=== PATIENT | male | born 1995 | race Caucasian/White ===

== ENCOUNTER 2019-05-24 09:06 | Emergency (ER) | payer SELFPAY ==
[2019-05-24] MEDS ORDERED: AMOXICILLIN TR/POT CLAVULANATE 500-125 MG TAB PO ONE (09:44)
[2019-05-24] MEDS ORDERED: HYDROCODONE/ACETAMINOPHEN 5-325 MG TABLET PO ONE (09:46)
[2019-05-24] MEDS ORDERED: AMOXICILLIN TRIHYD 250 MG CAPSULE PO ONE (09:46)
--- NOTE | 2019-05-24 09:46 | ER Document Report ---
ED Medical Screen (RME) - General Chief Complaint: Dog Bite Stated Complaint: ARM INJURY Time Seen by Provider: 05/24/19 09:38 Notes: Patient is a 23-year-old male who presents the emergency department after a dog bite. The dog bite happened at around 1:00 this morning. He was trying to get his friend's dog out of the way and the dog and biting him. He then started to walk down some stairs and he fell down them scraping his right knee. He denies any actual pain in his right knee. He does have some pain in his right hand and wrist where the dog bit him. He states that the dog is a "mutt." The dog is up-to-date on their rabies vaccine. Patient is up-to-date on his tetanus vaccine. Exam: Multiple puncture wounds noted to right hand and wrist/distal forearm. I have greeted and performed a rapid initial assessment of this patient. A comprehensive ED assessment and evaluation of the patient, analysis of test results and completion of medical decision making process will be conducted by an additional ED providers. TRAVEL OUTSIDE OF THE [place] IN LAST 30 DAYS: No - Related Data Allergies/Adverse Reactions: No Known Allergies Allergy (Verified 05/24/19 09:08) Past Medical History Past Surgical History: Reports: Hx Orthopedic Surgery - left shoulder - Immunizations Hx Diphtheria, Pertussis, Tetanus Vaccination: Yes Physical Exam - Vital signs Vitals: Temp Pulse Resp BP Pulse Ox 98.7 F 96 18 113/85 100 05/24/19 09:12 05/24/19 09:12 05/24/19 09:12 05/24/19 09:12 05/24/19 09:12 Course - Vital Signs Vital signs: Temp Pulse Resp BP Pulse Ox 98.7 F 96 18 113/85 100 05/24/19 09:12 05/24/19 09:12 05/24/19 09:12 05/24/19 09:12 05/24/19 09:12
--- NOTE | 2019-05-24 10:15 | RADIOLOGY REPORT (SQ) ---
EXAM DESCRIPTION: HAND RIGHT 3 VIEWS; WRIST RIGHT 3 VIEWS COMPLETED DATE/TIME: 05/24/2019 9:59 am REASON FOR STUDY: dog bite COMPARISON: None. FINDINGS: Three views right wrist: No fracture. No carpal malalignment. Mild dorsal soft tissue s welling without radiopaque foreign body detected. Three views right hand: Normal. TECHNICAL DOCUMENTATION: JOB ID: [id number] Reading location - IP/workstation name: [email or web address]
--- NOTE | 2019-05-24 10:15 | RADIOLOGY REPORT (SQ) ---
EXAM DESCRIPTION: HAND RIGHT 3 VIEWS; WRIST RIGHT 3 VIEWS COMPLETED DATE/TIME: 05/24/2019 9:59 am REASON FOR STUDY: dog bite COMPARISON: None. FINDINGS: Three views right wrist: No fracture. No carpal malalignment. Mild dorsal soft tissue s welling without radiopaque foreign body detected. Three views right hand: Normal. TECHNICAL DOCUMENTATION: JOB ID: [id number] Reading location - IP/workstation name: [email or web address]
--- NOTE | 2019-05-24 10:29 | ER Document Report ---
ED Animal Bite - General Chief Complaint: Dog Bite Stated Complaint: ARM INJURY Time Seen by Provider: 05/24/19 09:38 Primary Care Provider: HOMERO ROSE MD [ACTIVE STAFF] - Follow up as needed MANNY CAMARA DO [ACTIVE STAFF] - Follow up as needed Notes: Patient is a 23-year-old male who presents to the emergency department with a chief complaint of a right hand injury. Patient states around 1 AM this morning he attempted to should have a dog cough with his friends leg that was attempting to "hump" him when the dog latched onto his right hand. Patient reports that the dogs immunizations including rabies are up-to-date. Patient states his tetanus is up-to-date. Patient states that after the dog bite he said he became lightheaded as it "kind of freaked him out," patient states he walked outside and was walking down the steps on a porch when he slipped and fell onto his right side landing on his right forearm and right hand. Patient states he did get an abrasion above the right eye. Patient denies loss of consciousness or vomiting afterwards. Patient denies neck pain. Patient reports that he was drinking alcohol at the time. Patient reports an abrasion to the right knee but states he is not having knee pain and has been able to ambulate appropriately. Patient reports 6 puncture wounds to the right hand with swelling and significant pain. TRAVEL OUTSIDE OF THE [place] IN LAST 30 DAYS: No - Related Data Allergies/Adverse Reactions: No Known Allergies Allergy (Verified 05/24/19 09:08) Past Medical History - General Information source: Patient - Social History Smoking Status: Current Every Day Smoker Frequency of alcohol use: Social Lives with: Friend Family History: Reviewed & Not Pertinent Patient has suicidal ideation: No Patient has homicidal ideation: No - Past Medical History Cardiac Medical History: Reports: None Pulmonary Medical History: Reports: None EENT Medical History: Reports: None Neurological Medical History: Reports: None Endocrine Medical History: Reports: None Renal/ Medical History: Reports: None. Denies: Hx Peritoneal Dialysis Malignancy Medical History: Reports None GI Medical History: Reports: None Musculoskeletal Medical History: Reports None Skin Medical History: Reports None Psychiatric Medical History: Reports: None Traumatic Medical History: Reports: None Infectious Medical History: Reports: None Past Surgical History: Reports: Hx Orthopedic Surgery - left shoulder - Immunizations Hx Diphtheria, Pertussis, Tetanus Vaccination: Yes Review of Systems - Review of Systems Constitutional: No symptoms reported EENT: See HPI Cardiovascular: No symptoms reported Respiratory: No symptoms reported Gastrointestinal: No symptoms reported Genitourinary: No symptoms reported Male Genitourinary: No symptoms reported Musculoskeletal: No symptoms reported Skin: See HPI Hematologic/Lymphatic: No symptoms reported Neurological/Psychological: No symptoms reported Physical Exam - Vital signs Vitals: Temp Pulse Resp BP Pulse Ox 98.7 F 96 18 113/85 100 05/24/19 09:12 05/24/19 09:12 05/24/19 09:12 05/24/19 09:12 05/24/19 09:12 Interpretation: Normal - Notes Notes: GENERAL: Well-appearing, well-nourished and in no acute distress. HEAD: Atraumatic, normocephalic. EYES: Pupils equal round and reactive to light, extraocular movements intact, sclera anicteric, conjunctiva are normal. Abrasion and erythema noted above the right eye. ENT: TMs normal, nares patent, oropharynx clear without exudates. Moist mucous membranes. NECK: Normal range of motion, supple without lymphadenopathy or JVD. LUNGS: Breath sounds clear to auscultation bilaterally and equal. No wheezes ra les or rhonchi. HEART: Regular rate and rhythm without murmurs, rubs or gallops. ABDOMEN: Soft, nontender, normoactive bowel sounds. No guarding, no rebound. No masses appreciated. BACK: No cervical, thoracic, lumbar midline tenderness. No saddle anesthesia, normal distal neurovascular exam. GENITOURINARY: Deferred. EXTREMITIES: + edema to the dorsal aspect of the right hand and right wrist. 6 puncture baeza noted without drainage or erythema. Patient has limited range of motion to the right breast as it causes severe discomfort. Abrasion noted to the right forearm. Able to make a fist, okay sign, + strong right radial pulse. No snuff box tenderness. NEUROLOGICAL: Cranial nerves II through XII grossly intact. Normal speech, normal gait. PSYCH: Normal mood, normal affect. SKIN: Warm, Dry, normal turgor, no rashes or lesions noted. Course - Re-evaluation Re-evalutation: 05/24/19 11:14 Right wrist and right hand x-ray were negative for foreign body, dislocation or fracture. There was soft tissue swelling in the dorsal aspect of the hand which was consistent with the patient's injury and physical exam. We will place the patient in a padded Alejandro bandage after cleansing the puncture wounds appropriately. Patient will be placed on a prophylactic antibiotic for 10 days. Patient is aware to remove the dressing daily to look for signs and symptoms of infection. Patient was provided with a sling to keep the extremity elevated. - Vital Signs Vital signs: Temp Pulse Resp BP Pulse Ox 98.7 F 96 18 113/85 100 05/24/19 09:12 05/24/19 09:12 05/24/19 09:12 05/24/19 09:12 05/24/19 09:12 - Diagnostic Test Radiology reviewed: Reports reviewed Discharge - Discharge Clinical Impression: Wrist pain, right, Puncture wound Dog bite Qualifiers: Encounter type: initial encounter Qualified Code(s): W54.0XXA - Bitten by dog, initial encounter Fall Qualifiers: Encounter type: initial encounter Qualified Code(s): W19.XXXA - Unspecified fall, initial encounter Abrasion of knee, right Qualifiers: Encounter type: initial encounter Qualified Code(s): S80.211A - Abrasion, right knee, initial encounter Condition: Stable Disposition: HOME, SELF-CARE Additional Instructions: Today you were seen in the emergency department for an animal bite and fall. The x-ray of your right hand and right wrist were negative for an acute fracture or dislocation. You do have significant swelling around the puncture wounds and wrist. Your diagnosis is a right wrist sprain with multiple dog bites around the area. You are being placed on Augmentin which is an antibiotic. You are at increased risk for infection due to the multiple puncture wounds of the dog. It is extremely important to finish your course of antibiotics which is for 10 days. You are also being prescribed [place] which is a narcotic pain medication do not drink or operate any heavy machinery or vehicles while on this medication as it can make you drowsy. Also use ibuprofen for pain and swelling. Ice and elevate the area. You are being placed in a padded Alejandro wrap to the right wrist and hand, this is for comfort. Please remove this daily to evaluate the puncture wounds for infection which includes increased redness, or redness that streaks up the arm, increased swelling, foul-smelling drainage, fever or heat around the sites. It was also noted that you had multiple abrasions to the right knee and above the right eye. Please keep these wounds clean and dry. Monitor for signs and symptoms of infection. Please return to emergency department if there is severe pain, numbness or loss of function to the injured area. Please follow-up with orthopedics if you continue to have discomfort. Sprain Your injury is a sprain. A sprain results from stretching or tearing of the ligaments, usually from a twisting injury. The ligaments will require time and protection in order to heal properly. Many sprains are quite disabling and should be taken seriously. The usual initial treatment of sprains is cold packs, elevation, and rest of the injured area. Your physician has assessed the seriousness of your ligament injury, and has outlined a treatment plan. Understand that this treatment may change, depending on how you progress. If a re-examination was recommended, it is important that you follow up as instructed. Call the doctor any time if there is severe pain, numbness, or loss of function in the injured area. Animal Bites Animal bites are often heavily contaminated with bacteria. In spite of thorough cleansing and proper treatment, these wounds frequently become infected. Bite wounds of the hands are especially prone to complications. Bites are dressed, if possible. Large wounds may require suturing after internal cleansing. Because of infection risk, some large wounds must remain unstitched. Your doctor is trained to advise you on the best treatment for your bite. Call the doctor at once if the wound becomes red, swollen, warm, increasingly painful, or if it begins to drain. Danger signs also include red streaks up the involved extremity, swollen glands in the groin or under the arm, or fever and chills. The risk of rabies from domestic animals is very low. Bats, sick animals, and wild animals may expose you to rabies. The physician, or the health department, will inform you if you will need to receive the rabies vaccine. Sling to be Used You are to use a sling. This is to rest the area, and to prevent it from hanging downward. Use this sling for at least 48 hours (or longer if so instructed by the doctor). Some types of splints will break if not supported by the sling, so the sling must be used as long as the splint. Ice can be placed inside the sling over the injured area. Once you remove the sling, you should not encounter pain when you use the arm and hand. If you do feel pain beneath the cast or splint, you must continue use of the sling. Sling as Treatment A sling has been applied to protect the injury. This is adequate immobilization for this type of injury -- no cast or brace is required. Keep the sling on at all times until instructed to remove it by the doctor. Even though no cast or splint is needed, you must use the sling. If you use the arm too soon, it may not heal properly! If necessary, the sling can be adjusted for comfort. Return if you are encountering problems with the sling. Prescriptions: Amox Tr/Potassium Clavulanate [Augmentin 875-125 Tablet] 1 tab PO BID 10 Days tablet Hydrocodone/Acetaminophen [[place] 5-325 mg Tablet] 1 tab PO Q6 PRN #10 tablet PRN Reason: Forms: Return to Work Referrals: HOMERO ROSE MD [ACTIVE STAFF] - Follow up as needed MANNY CAMARA DO [ACTIVE STAFF] - Follow up as needed
[2019-05-24 12:04] VITALS: BP 128/77
== END 2019-05-24 12:04 | disposition home or self-care (01) ==
LOC: ER 09:06
DX: S61.451A Open bite of right hand, initial encounter (principal); W54.0XXA Bitten by dog, initial encounter; Y93.89 Activity, other specified; Y92.009 Unspecified place in unspecified non-institutional (private) residence as the place of occurrence of the external cause; S80.211A Abrasion, right knee, initial encounter; S00.211A Abrasion of right eyelid and periocular area, initial encounter; S50.811A Abrasion of right forearm, initial encounter; W10.8XXA Fall (on) (from) other stairs and steps, initial encounter; Y92.008 Other place in unspecified non-institutional (private) residence as the place of occurrence of the external cause; M25.531 Pain in right wrist; F17.200 Nicotine dependence, unspecified, uncomplicated
CPT/HCPCS: 99283; 73130; 73110; J3490

== ENCOUNTER 2020-02-07 16:27 | Emergency (ER) | payer SELFPAY ==
[2020-02-07] MEDS ORDERED: KETOROLAC TROMETHAMINE INJ/PF 30 MG/1 ML SDV IV ONE (16:46)
[2020-02-07] MEDS ORDERED: NORMAL SALINE 1000 ML 1,000 ML IV ONE (17:06)
--- NOTE | 2020-02-07 17:06 | ER Document Report ---
ED GI/ - General Chief Complaint: Abdominal Pain Stated Complaint: STOMACH PAIN Time Seen by Provider: 02/07/20 16:37 Primary Care Provider: [facility] [Provider Group] - Follow up as needed Mode of Arrival: Ambulatory Information source: Patient Notes: Patient presents reporting lower pelvic pain off and on for the past year. Patient states that pain started today after having a bowel movement. Patient states previous episodes have typically started after having a bowel movement as well. Patient states that he typically has daily bowel movements and denies concerns about constipation. Patient denies any fever or urinary symptoms. Patient denies any penile drainage or discharge. Patient denies any nausea or vomiting. TRAVEL OUTSIDE OF THE [place] IN LAST 30 DAYS: No - HPI Patient complains to provider of: Groin pain. No: Hematuria, Vomiting Onset: This afternoon Timing/Duration: Waxing and waning Quality of pain: Achy Pain Level: 2 Location: Pelvis Associated symptoms: denies: Constipation, Diarrhea, Dysuria, Fever, Nausea, Urinary hesitancy, Urinary frequency, Urinary retention, Urinary urgency, Vomiting Exacerbated by: Other - Bowel movement Relieved by: Denies Similar symptoms previously: Yes Recently seen / treated by doctor: No - Related Data Allergies/Adverse Reactions: No Known Allergies Allergy (Verified 05/24/19 09:08) Past Medical History - General Information source: Patient - Social History Smoking Status: Current Every Day Smoker - Vape Frequency of alcohol use: None Drug Abuse: None Occupation: Foodservice Family History: Reviewed & Not Pertinent Patient has suicidal ideation: No Patient has homicidal ideation: No Neurological Medical History: Reports: Hx Seizures - Possible vasovagal Renal/ Medical History: Denies: Hx Peritoneal Dialysis Past Surgical History: Reports: Hx Orthopedic Surgery - left shoulder - Immunizations Hx Diphtheria, Pertussis, Tetanus Vaccination: Yes Review of Systems - Review of Systems Constitutional: No symptoms reported. denies: Fever, Recent illness EENT: No symptoms reported Cardiovascular: No symptoms reported. denies: Chest pain Respiratory: No symptoms reported. denies: Cough, Short of breath Gastrointestinal: Abdominal pain. denies: Diarrhea, Nausea, Vomiting Genitourinary: No symptoms reported. denies: Dysuria, Urgency Male Genitourinary: Other - groin pain. denies: Testicular pain, Penile discharge Musculoskeletal: Back pain Skin: No symptoms reported Hematologic/Lymphatic: No symptoms reported Neurological/Psychological: No symptoms reported Physical Exam - Vital signs Vitals: Temp Pulse Resp BP Pulse Ox 98.5 F 91 16 114/72 98 02/07/20 16:30 02/07/20 16:30 02/07/20 16:30 02/07/20 16:30 02/07/20 16:30 - General General appearance: Appears well, Alert In distress: None - HEENT Head: Normocephalic, Atraumatic Eyes: Normal Conjunctiva: Normal Nasal: Normal Mouth/Lips: Normal Neck: Normal, Supple - Respiratory Respiratory status: No respiratory distress Chest status: Nontender Breath sounds: Normal. No: Rales, Rhonchi, Stridor, Wheezing Chest palpation: Normal - Cardiovascular Rhythm: Regular Heart sounds: S1 appreciated, S2 appreciated - Abdominal Inspection: Normal Distension: No distension Bowel sounds: Normal Tenderness: Nontender Organomegaly: No organomegaly - Genitourinary Inspection: Normal Tenderness: Other - Bilateral inguinal tenderness, no palpable mass or bulge Cremasteric reflex: Normal Scrotum: Normal. No: Swelling, Redness - Back Back: Tender - Lower lumbar paraspinal tenderness. No: CVA tenderness - Extremities General upper extremity: Normal inspection, Normal ROM General lower extremity: Normal inspection, Normal ROM - Neurological Neuro grossly intact: Yes Cognition: Normal [place] Coma Scale Eye Opening: Spontaneous [place] Coma Scale Verbal: Oriented [place] Coma Scale Motor: Obeys Commands Yanira Coma Scale Total: 15 - Psychological Associated symptoms: Normal affect, Normal mood - Skin Skin Temperature: Warm Skin Moisture: Dry Skin Color: Normal Course - Re-evaluation Re-evalutation: 02/07/20 17:00 After venipuncture patient became pale, diaphoretic and had a momentary loss of consciousness. Patient initially hypotensive after the episode. Symptoms only lasted a few minutes and then patient skin color returned to normal and blood pressure returned to baseline. Patient with likely vasovagal episode. 02/07/20 18:42 Patient reports that groin pain has now resolved. Patient states that he has these episodes frequently and just today's pain was more severe than usual. Patient without any fever, leukocytosis or urinary tract infection. No acute findings on scrotal ultrasound. No concern for testicular torsion. Patient de nies any concerns about STI. Discussed worsening signs or symptoms that patient should return immediately for. Patient verbalized understanding is agreeable to discharge plan of care. - Vital Signs Vital signs: Temp Pulse Resp BP Pulse Ox 98.5 F 91 16 134/65 H 100 02/07/20 16:30 02/07/20 16:30 02/07/20 18:01 02/07/20 18:00 02/07/20 18:01 - Laboratory Result Diagrams: 02/07/20 16:50 02/07/20 16:50 Laboratory results interpreted by me: 02/07/20 02/07/20 16:50 17:38 MCH 33.7 H RDW 15.3 H Urine Protein 30 H Urine Urobilinogen 2.0 H Labs- Entire Visit 02/07/20 02/07/20 02/07/20 16:50 16:50 17:38 WBC 7.8 RBC 4.78 Hgb 16.1 Hct 45.6 MCV 95 MCH 33.7 H MCHC 35.4 RDW 15.3 H Plt Count 283 Lymph % (Auto) 22.4 [place] % (Auto) 6.5 Eos % (Auto) 0.6 Baso % (Auto) 1.0 Absolute Neuts (auto) 5.4 Absolute Lymphs (auto) 1.7 Absolute Monos (auto) 0.5 Absolute Eos (auto) 0.0 Absolute Basos (auto) 0.1 Seg Neutrophils % 69.5 Sodium 137.8 Potassium 4.7 Chloride 106 Carbon Dioxide 25 Anion Gap 7 BUN 18 Creatinine 0.86 Est GFR ( Amer) > 60 Est GFR (MDRD) Non-Af > 60 Glucose 102 Calcium 9.8 Urine Color YELLOW Urine Appearance CLEAR Urine pH 7.0 Ur Specific [place] 1.030 Urine Protein 30 H Urine Glucose (UA) NEGATIVE Urine Ketones NEGATIVE Urine Blood NEGATIVE Urine Nitrite NEGATIVE Urine Bilirubin NEGATIVE Urine Urobilinogen 2.0 H Ur Leukocyte Esterase NEGATIVE Urine WBC (Auto) 2 Urine RBC (Auto) 0 Urine Mucus (Auto) FEW Urine Ascorbic Acid NEGATIVE - Diagnostic Test Radiology reviewed: Image reviewed, Reports reviewed - EKG Interpretation by Me EKG shows normal: Sinus rhythm Rate: Normal Rhythm: NSR Discharge - Discharge Clinical Impression: Groin pain Qualifiers: Laterality: unspecified laterality Qualified Code(s): R10.30 - Lower abdominal pain, unspecified Condition: Stable Disposition: HOME, SELF-CARE Instructions: Abdominal Pain ([facility]) Additional Instructions: Return immediately for any new or worsening symptoms Followup with your primary care provider, call tomorrow to make a followup appointment Prescriptions: Naproxen [Naprosyn 250 Nmg Tablet] 1 tab PO BID #14 tablet Forms: Return to Work Referrals: [facility] [Provider Group] - Follow up as needed
--- NOTE | 2020-02-07 17:31 | RADIOLOGY REPORT (SQ) ---
EXAM DESCRIPTION: KUB/ABDOMEN (SINGLE VIEW) IMAGES COMPLETED DATE/TIME: 02/07/2020 5:17 pm REASON FOR STUDY: pelvic pain COMPARISON: None. NUMBER OF VIEWS: One view. TECHNIQUE: Supine radiographic image of the abdomen acquired. LIMITATIONS: None. FINDINGS: BOWEL GAS PATTERN: Normal bowel gas pattern. No dilated loops. CALCIFICATIONS: No suspicious calcifications. SOFT TISSUES: No gross mass or suggestion of organomegaly. HARDWARE: None in the abdomen. BONES: No acute fracture. No worrisome bone lesions. OTHER: No other significant finding. IMPRESSION: NO RADIOGRAPHIC EVIDENCE FOR ACUTE ABDOMINAL DISEASE. TECHNICAL DOCUMENTATION: JOB ID: [id number] 2010 [employer]- All Rights Reserved Reading location - IP/workstation name: [email or web address]
[2020-02-07 17:32] LABS: ABSOLUTE BASOPHILS # (AUTO) 0.1 10^3/uL (0.0-0.2); ABSOLUTE LYMPHOCYTES (AUTO) 1.7 10^3/uL (0.5-4.7); ABSOLUTE MONOCYTES (AUTO) 0.5 10^3/uL (0.1-1.4); ABSOLUTE NEUT (AUTO) 5.4 10^3/uL (1.7-8.2); EOSINOPHILS % (AUTO) 0.6 % (0-6); HEMATOCRIT 45.6 % (37.9-51.0); HEMOGLOBIN 16.1 g/dL (13.5-17.0); LYMPHOCYTES % (AUTO) 22.4 % (13-45); MEAN CORPUSCULAR HEMOGLOBIN 33.7 pg (27.0-33.4); MEAN CORPUSCULAR HGB CONC 35.4 g/dL (32.0-36.0); MEAN CORPUSCULAR VOLUME 95 fl (80-97); MONOCYTES % (AUTO) 6.5 % (3-13); PLATELET COUNT 283 10^3/uL (150-450); RED BLOOD COUNT 4.78 10^6/uL (4.35-5.55); RED CELL DISTRIBUTION WIDTH 15.3 % (11.5-14.0); SEGMENTED NEUTROPHILS % (AUTO) 69.5 % (42-78); TOTAL CELLS COUNTED % (AUTO) 100 %; WHITE BLOOD COUNT 7.8 10^3/uL (4.0-10.5)
[2020-02-07 17:35] LABS: ANION GAP 7 (5-19); BLOOD UREA NITROGEN 18 mg/dL (7-20); CALCIUM 9.8 mg/dL (8.4-10.2); CARBON DIOXIDE 25 mmol/L (22-30); CHLORIDE 106 mmol/L (98-107); GLUCOSE 102 mg/dL (75-110); POTASSIUM 4.7 mmol/L (3.6-5.0)
[2020-02-07 17:55] LABS: APPEARANCE,URINE CLEAR; BILIRUBIN,URINE NEGATIVE (NEGATIVE); COLOR,URINE YELLOW; GLUCOSE, URINE NEGATIVE (NEGATIVE); KETONES,URINE NEGATIVE (NEGATIVE); LEUKOCYTE ESTERASE,URINE NEGATIVE (NEGATIVE); NITRITE,URINE NEGATIVE (NEGATIVE); PROTEIN,URINE 30 mg/dL (NEGATIVE)
--- NOTE | 2020-02-07 17:59 | RADIOLOGY REPORT (SQ) ---
EXAM DESCRIPTION: U/S SCROTUM W/DOPPLER IMAGES COMPLETED DATE/TIME: 02/07/2020 5:41 pm REASON FOR STUDY: inguinal tenderness COMPARISON: None. TECHNIQUE: Static and realtime vargas scale imaging of the scrotum and testes. Selected color Doppler and spectral images recorded to document blood flow. LIMITATIONS: None. FINDINGS: RIGHT: TESTICLE: Normal size. Normal echotexture. Normal blood flow. No mass. EPIDIDYMIS: Normal. HYDROCELE OR VARICOCELE: No. HERNIA OR EXTRA-TESTICULAR MASS: No. OTHER: No other significant finding. LEFT: TESTICLE: Normal size. Normal echotexture. Normal blood flow. No mass. EPIDIDYMIS: Normal. HYDROCELE OR VARICOCELE: No. HERNIA OR EXTRA-TESTICULAR MASS: No. OTHER: No other significant finding. IMPRESSION: NORMAL SCROTAL ULTRASOUND. NO EVIDENCE OF TESTICULAR MASS OR TORSION. TECHNICAL DOCUMENTATION: JOB ID: [id number] 2010 [employer]- All Rights Reserved Reading location - IP/workstation name: [email or web address]
[2020-02-07 18:54] VITALS: BP 121/72
[2020-02-07 19:19] LABS: CHLAM PCR NOT DETECTED (NOT DETECT)
--- NOTE | 2020-02-08 09:01 | EKG REPORT ---
SEVERITY:- NORMAL ECG - SINUS RHYTHM : Confirmed by: Aixa Martinez MD 08-Feb-2020 09:01:10
== END 2020-02-07 18:57 | disposition home or self-care (01) ==
LOC: ER 16:27
DX: R10.2 Pelvic and perineal pain (principal); F17.290 Nicotine dependence, other tobacco product, uncomplicated; R55 Syncope and collapse
CPT/HCPCS: 93005; 99284; 96361; 96374; 36415; 85025; 80048; 81001; 87491; 87591; 74018; 76870; 93976; 93010; J1885; J7030